=== PATIENT | male | born 2000 | race Two or more races ===

== ENCOUNTER 2019-06-30 20:51 | Inpatient (IN) | payer MEDICAID ==
[~2019-06-30] VITALS: Ht 172.7 cm; Wt 67.4 kg
[2019-06-30 21:29] LABS: Basophils # (auto) 0 10 ^3/uL (0-0.2); Basophils % (auto) 0.5 % (0.0-2.0); Eosinophils # (auto) 0.3 10 ^3/uL (0-0.8); Eosinophils % (auto) 3.3 % (0.0-7.0); Hematocrit 42.2 % (41.0-53.0); Hemoglobin 14.6 g/dL (13.5-17.5); Lymphocytes # (auto) 1.9 10 ^3/uL (0.4-5.4); Lymphocytes % (auto) 22.6 % (10.0-50.0); Mean Corpuscular Hemoglobin 31.5 pg (28.0-32.0); Mean Corpuscular Hgb Conc. 34.6 g/dL (32.0-36.0); Mean Corpuscular Volume 90.9 fL (80.0-100.0); Monocytes # (auto) 0.4 10 ^3/uL (0-1.3); Monocytes % (auto) 4.8 % (0.0-12.0); Neutrophils # (auto) 5.7 10 ^3/uL (1.6-8.6); Neutrophils % (auto) 68.8 % (37.0-80.0); Nucleated Red Blood Cells % 0.1 %; Platelet Count (auto) 215 10^3/uL (140-450); Red Blood Cells 4.64 10^6/uL (4.5-5.90); White Blood Cell 8.3 10^3/uL (4.4-10.8)
[2019-06-30 21:51] LABS: Albumin 4.2 g/dL (3.4-5.0); Potassium 4.5 mmol/L (3.5-5.1)
[2019-06-30 21:53] LABS: Bilirubin, Total 0.7 mg/dL (0.2-1.0); Total Protein 7.3 g/dL (6.4-8.2)
[2019-06-30 22:29] LABS: Alcohol, Urine < 3.0 mg/dL (0-5); Amphetamine Screen, Urine NEGATIVE (NEGATIVE); Barbiturate Scree,Urine NEGATIVE (NEGATIVE); Benzodiazephine Screen, Urine POSITIVE (NEGATIVE); Cannabinoid Screen, Urine POSITIVE (NEGATIVE); Cocaine Screen, Urine NEGATIVE (NEGATIVE); Opiate Scree,Urine NEGATIVE (NEGATIVE); Phencyclidine Screen, Urine NEGATIVE (NEGATIVE)
[2019-06-30 22:46] LABS: Magnesium 2.2 mg/dL (1.6-2.6)
[2019-07-01] VITALS (7 sets, daily range): BP systolic 108–135; BP diastolic 56–78
[2019-07-01] MEDS ORDERED: LORazepam 2MG/ML-1ML VIAL IV PRN (00:30)
[2019-07-01] MEDS ORDERED: NITROGLYCERIN 0.4 MG SL TAB SL PRN (00:30)
[2019-07-01] MEDS ORDERED: MORPHINE SULF INJ 2 MG/ML SYRINGE 1ML IV PRN (00:30)
[2019-07-01] MEDS ORDERED: ACETAMINOPHEN 325 MG TAB PO PRN (00:30)
[2019-07-01] MEDS ORDERED: TEMAZEPAM 15 MG CAP PO PRN (00:30)
[2019-07-01] MEDS ORDERED: ONDANSETRON HCL 4 MG/2 ML VIAL IV PRN (00:30)
--- NOTE | 2019-07-01 02:00 | NUR ---
received pt from er nurse poc reviewed, pts mother at bedside all questions and concerns addressed, tele in place, seizure precautions observed
--- NOTE | 2019-07-01 03:56 | NUR ---
resting with eyes closed call light within reach, no c/o discomfort
--- NOTE | 2019-07-01 06:19 | NUR ---
pts hr dropped down to sb 40 at this time
--- NOTE | 2019-07-01 06:30 | NUR ---
resting comfortable seizure precautions in place
--- NOTE | 2019-07-01 06:53 | NUR ---
report given to am nurse poc reviewed
--- NOTE | 2019-07-01 07:20 | NUR ---
Opening Shift Note Assumed care of patient, resting in bed with eyes closed. Seizure precautions in place. No S/S of distress/SOB or pain. Bed is set in lowest locked position with side rails up x 2 for safety and call light is within reach, will continue to monitor for changes Q1hr and PRN.
[2019-07-01] MEDS: FAMOTIDINE 20 MG TAB PO SCH ×2 (09:31→22:01)
[2019-07-01] MEDS ORDERED: ASPirin 81 mg TAB PO SCH (10:00)
--- NOTE | 2019-07-01 14:39 | NUR ---
Patient rounds Patient is resting in bed with eyes closed. Cayla Beebe, at bedside.
--- NOTE | 2019-07-01 15:29 | NUR ---
MD at bedside Dr. Bourgeois, updated pt and patient's mom, Cayla, on POC. Patient and mom both state all questions are answered at this time.
--- NOTE | 2019-07-01 16:37 | NUR ---
LIME M[employer]ER TENDER at bedside for cardiology consult
[2019-07-01] MEDS ORDERED: MULTIPLE VITAMINS W/ MINERALS TAB PO ONE (17:00)
[2019-07-01] MEDS ORDERED: chlordiazePOXIDE HCL 5 MG CAP PO PRN (17:00)
[2019-07-01] MEDS: SOD CHL 0.45% WITH 20MEQ KCL 1,000 ML IV SCH (17:56)
--- NOTE | 2019-07-01 19:19 | NUR ---
Endorsed care to NOC RN.
--- NOTE | 2019-07-01 19:32 | NUR ---
received report from day rn poc reviewed
--- NOTE | 2019-07-01 20:00 | NUR ---
dr sanders at bedside spoke to pt and family
--- NOTE | 2019-07-01 21:18 | NUR ---
resting comfortable with eyes closed resp even and unlabored, hr 45 sb at this time
[2019-07-02 05:00] VITALS: BP 100/49
--- NOTE | 2019-07-02 06:16 | NUR ---
resting with eyes closed, no c/o discomfort
[2019-07-02] MEDS: SOD CHL 0.45% WITH 20MEQ KCL 1,000 ML IV SCH ×2 (06:37→13:00)
[2019-07-02 07:06] LABS: Calcium 8.6 mg/dL (8.5-10.1); Potassium 3.4 mmol/L (3.5-5.1)
[2019-07-02 07:08] LABS: BUN/Creatinine Ratio 15.7
--- NOTE | 2019-07-02 09:45 | NUR ---
EEG Unable to do Electroencephalogram. Pt not in room. Will reattempt later today. RN informed
[2019-07-02 09:47] VITALS: BP 115/55
[2019-07-02] MEDS ORDERED: MULTIPLE VITAMINS W/ MINERALS TAB PO SCH (10:00)
[2019-07-02] MEDS: FAMOTIDINE 20 MG TAB PO SCH (10:27)
--- NOTE | 2019-07-02 10:36 | NUR ---
Doctor lopez at bedside
[2019-07-02] MEDS ORDERED: POTASSIUM CHL 20 Meq TABLET PO ONE (10:45)
[2019-07-02 13:00] VITALS: BP 131/63
--- NOTE | 2019-07-02 13:25 | NUR ---
CALLED DOWN TO EEG DEPARTMENT TO SEE IF THEY WILL BE SEEING PATIENT TODAY FOR ORDERED EEG. Addendum: 07/02/19 at 1612 by DEONNA SALDANA RN RN MESSAGE LEFT.
--- NOTE | 2019-07-02 16:09 | NUR ---
PAGED DOCTOR DREW.
--- NOTE | 2019-07-02 16:11 | NUR ---
RECEIVED CALL BACK FROM DOCTOR RUSSELL. INFORM MD THAT PATIENT HAS NOT HAD EEG PERFORMED TODAY AND HAVE CALLED EEG UNIT AND HAVE NOT HEARD BACK FROM CANDLES POURER. PER MD SHE WILL CALL DOCTOR AWAD TO SEE IF IT CAN BE DONE OUT PATIENT. WILL CALL ME BACK.
--- NOTE | 2019-07-02 16:15 | NUR ---
RECEIVED CALL BACK FROM DOCTOR RUSSELL PER DOCTOR RUSSELL SHE SPOKE WITH DOCTOR RITESH AND HE STATED PATIENT CAN FOLLOW UP WITH PCP AND GET REFERRAL TO DO EEG OUTPATIENT. PER DOCTOR RUSSELL PATIENT CAN BE DISCHARGE AND FOLLOW UP WITH PCP.
--- NOTE | 2019-07-02 16:44 | NUR ---
Discharge instructions given as ordered. Encourage to follow up with PMD as instructed. All questions and concerns addressed. Patient verbalized understanding. Medication reconciliation form completed and copy given to patient. Patient informed to make follow appointment with PCP and to have EEG done as out patient. No home medications held in Pharmacy and none returned to patient, and no needed vaccines given. IV removed with catheter intact, pressure dressing applied. Telemetry unit returned to ICU. Patient taken to vehicle via wheelchair with all personal belongings, accompanied by staff and family member. No distress noted at time of departure.
== END 2019-07-02 16:44 | disposition home or self-care (01) | DRG 53 ==
LOC: EDBD 20:51 → ER 20:58 → TELE 20:59 → TELE-EAST 07-01 02:19
PROVIDERS: ADMIT Nurse Practitioner; ATTEND Internal Medicine
DX: G40.501 Epileptic seizures related to external causes, not intractable, with status epilepticus (principal); G92 Toxic encephalopathy; F10.10 Alcohol abuse, uncomplicated; F13.239 Sedative, hypnotic or anxiolytic dependence with withdrawal, unspecified; T42.4X5A Adverse effect of benzodiazepines, initial encounter; Z71.51 Drug abuse counseling and surveillance of drug abuser; Y92.098 Other place in other non-institutional residence as the place of occurrence of the external cause
CPT/HCPCS: 36415; 70450; 70551; 80048; 80053; 80307; 80320; 82550; 83735; 84484; 85025; 93005; 93306; G0378